=== PATIENT | male | born 1980 | race Caucasian/White ===

== ENCOUNTER 2020-10-31 10:18 | Emergency (ER) | payer BC ==
--- NOTE | 2020-10-31 10:49 | RAD ---
XR Chest 1 View Portable History: Tachycardia Comparison: None. Findings: Lungs are clear. Heart size mildly enlarged. No pneumothorax. No effusion. No acute osseous abnormality. Impression: Mild cardiomegaly.
[2020-10-31 10:54] LABS: #Basophils 0.1 thou/uL (0.0-0.2); #Eosinphils 0.1 thou/uL (0.0-0.7); #Lymphocytes 2.2 thou/uL (1.20-3.40); #Monocytes 0.4 thou/uL (0.11-0.59); #Neutrophils 3.2 thou/uL (1.40-6.50); %Basophils 1.7 % (0.0-1.0); %Eosinophils 1.3 % (0.0-10.0); %Lymphocytes 36.6 % (21.0-51.0); %Monocytes 7.1 % (0.0-10.0); %Neutrophils 53.4 % (42.0-75.0); Hemoglobin 15.5 g/dL (14.0-18.0); Mean Corpuscular HGB CONC 33.6 g/dL (32.0-36.0); Mean Corpuscular Hemoglobin 29.4 pg (27.0-31.0); Mean Corpuscular Volume 87.7 fL (78.0-98.0); Mean Platelet Volume 7.4 fL (7.4-10.4); Platelet Count 251 thou/uL (130-400); RBC Distribution Width 12.6 % (11.5-14.5); Red Blood Cell (RBC) Count 5.26 mill/uL (4.70-6.10); White Blood Cell (WBC) Count 5.9 thou/uL (4.8-10.8)
[2020-10-31 11:25] LABS: ALT (SGPT) 55 U/L (8-55); AST (SGOT) 25 U/L (5-34); Albumin 4.6 g/dL (3.5-5.0); Alkaline Phosphatase 105 U/L (40-110); Anion Gap 13 mmol/L (10-20); BUN (Urea Nitrogen) 16 mg/dL (8.9-20.6); Bilirubin, Total 0.3 mg/dL (0.2-1.2); CK (CPK) 99 U/L (30-200); Calc. Creatinine Clearance 0 mL/min (70-130); Calcium 9.7 mg/dL (7.8-10.44); Carbon Dioxide 26 mmol/L (22-29); Chloride 103 mmol/L (98-107); Globulin 3.3 g/dL (2.4-3.5); Glucose 100 mg/dL (70-105); Protein, Total 7.9 g/dL (6.0-8.3)
[2020-10-31 11:34] LABS: Sodium 138 mmol/L (136-145)
--- NOTE | 2020-11-04 14:01 | EKG ---
Test Reason : TACHY Blood Pressure : / mmHG Vent. Rate : 093 BPM Atrial Rate : 093 BPM P-R Int : 142 ms QRS Dur : 090 ms QT Int : 342 ms P-R-T Axes : 041 061 043 degrees QTc Int : 425 ms Normal sinus rhythm Normal ECG Confirmed by YARI PRUITT DO ([id number]), editor publications FUNMILAYO PALOMARES ([id number]) on 11/04/2020 2:00:45 PM Referred By: Confirmed By:YARI PRUITT DO
== END 2020-10-31 12:46 | disposition home or self-care (01) ==
LOC: ERS 10:18
DX: R00.0 Tachycardia, unspecified (principal); R00.2 Palpitations
CPT/HCPCS: 71045; 80053; 82550; 84443; 84484; 85025; 85379; 93005

== ENCOUNTER 2020-11-08 12:26 | Outpatient (CLI) | payer BC | END 2020-11-08 12:27 | disposition home or self-care (01) | LOC: ULT 12:26 | PROVIDERS: ATTEND Family Medicine | DX: R00.2 Palpitations (principal) | CPT/HCPCS: 93306 ==

== ENCOUNTER 2020-11-13 07:18 | Outpatient (CLI) | payer BC | END 2020-11-13 07:19 | disposition home or self-care (01) | PROVIDERS: ATTEND Family Medicine | DX: R00.2 Palpitations (principal) | CPT/HCPCS: 93225; 93226 ==